=== PATIENT | female | born 1955 | race Caucasian/White ===

== ENCOUNTER → 2019-07-14 10:58 | Outpatient (CLI) | payer MEDICARE | END | disposition home or self-care (01) | LOC: D.RAD 10:58 | PROVIDERS: ATTEND Surgery | DX: M54.9 Dorsalgia, unspecified (principal); M54.12 Radiculopathy, cervical region; M54.2 Cervicalgia; M47.817 Spondylosis without myelopathy or radiculopathy, lumbosacral region; M47.897 Other spondylosis, lumbosacral region; M46.87 Other specified inflammatory spondylopathies, lumbosacral region; G89.4 Chronic pain syndrome; Z79.891 Long term (current) use of opiate analgesic; Z79.899 Other long term (current) drug therapy ==